=== PATIENT | female | born 1965 | race Caucasian/White ===

== ENCOUNTER → 2016-07-30 | Outpatient (CLI) | payer BC ==
[2016-07-30 19:00] LABS: ALT 52 U/L (9-52); AST 36 U/L (14-36); Alkaline Phosphatase 84 U/L (38-126); Blood Urea Nitrogen 19 mg/dL (7-17); Non-African American GFR(MDRD) >60 (>60 ml/min/1.73 sqM)
== END | disposition home or self-care (01) ==
LOC: MMGSC 15:38
PROVIDERS: ATTEND Pain Medicine Pain Medicine
DX: K75.89 Other specified inflammatory liver diseases (principal)
CPT/HCPCS: 36415; 82565; 84075; 84450; 84460; 84520

== ENCOUNTER → 2017-02-25 | Outpatient (CLI) | payer BC ==
[2017-02-25 19:10] LABS: Basophils # (A) 0.1 k/uL (0-0.2); Basophils % (A) 1 %; CH 31.2; Eosinophils # (A) 0.1 k/uL (0-0.7); Eosinophils % (A) 2 %; HCT 42.3 % (34.0-46.0); HDW 2.35; HGB 14.5 gm/dL (11.4-16.0); Luc # (Auto) 0.17; Luc % (Auto) 3; Lymphocytes % (A) 28 %; MCH 31.5 pg (25.0-35.0); MCHC 34.2 g/dL (31.0-37.0); Mean Platelet Volume 8.2; Monocytes # (A) 0.4 k/uL (0-1.0); Monocytes % (A) 6 %; Neutrophils # (A) 4.2 k/uL (1.3-7.7); Neutrophils % (A) 61 %; RDW 12.3 % (11.5-15.5); WBC 6.9 k/uL (3.8-10.6); WBC (Perox) 6.76
[2017-02-25 19:24] LABS: ALT 48 U/L (9-52); AST 34 U/L (14-36); Alkaline Phosphatase 92 U/L (38-126); Anion Gap 8 mmol/L; Blood Urea Nitrogen 16 mg/dL (7-17); Calcium 9.7 mg/dL (8.4-10.2); Carbon Dioxide 30 mmol/L (22-30); Chloride 97 mmol/L (98-107); Cholesterol 229 mg/dL (<200); Glucose 94 mg/dL (74-99); HDL Cholesterol 62 mg/dL (40-60); Non-African American GFR(MDRD) >60 (>60 ml/min/1.73 sqM); Potassium 5.1 mmol/L (3.5-5.1); Sodium 135 mmol/L (137-145); Total Bilirubin 0.3 mg/dL (0.2-1.3); Total Protein 6.8 g/dL (6.3-8.2)
== END ==
LOC: MMGSC 15:23
PROVIDERS: ATTEND Family Medicine
DX: Z00.00 Encounter for general adult medical examination without abnormal findings (principal)
CPT/HCPCS: 36415; 80053; 80061; 84439; 84443; 85025

== ENCOUNTER → 2022-03-12 | Outpatient (CLI) | payer BC ==
--- NOTE | 2022-03-13 09:01 | MM ---
Reason for Exam: Screening (asymptomatic). Patient History: Menarche at age 12. First Full-Term at age 28. Postmenopausal. Risk Values: Radha 5 year model risk: 1.4%. NCI Lifetime model risk: 8.9%. Tissue Density: There are scattered fibroglandular densities. Findings: Analyzed By CAD. There is a breast in the left mass upper outer quadrant approximately 4 cm from the nipple measuring 13 mm. Overall Assessment: Incomplete: need additional imaging evaluation, BI-RAD 0 Management: Diagnostic Breast Ultrasound of the left breast. A clinical breast exam by your physician is recommended on an annual basis and results should be correlated with mammographic findings. [facility] will attempt to contact patient to return for supplemental views and ultrasound if indicated. Electronically signed and approved by: Raphael Best DO
== END | disposition home or self-care (01) ==
LOC: RADMAMWWP 15:38
PROVIDERS: ATTEND Obstetrics & Gynecology Obstetrics
DX: Z12.31 Encounter for screening mammogram for malignant neoplasm of breast (principal)
CPT/HCPCS: 77063; 77067

== ENCOUNTER → 2022-03-20 | Outpatient (CLI) | payer BC ==
--- NOTE | 2022-03-20 17:11 | USB ---
Reason for Exam: Additional evaluation requested from abnormal screening. Patient History: Menarche at age 12. First Full-Term at age 28. Postmenopausal. Risk Values: Radha 5 year model risk: 1.4%. NCI Lifetime model risk: 8.9%. Technique: Method: Targeted. Prior Study Comparison: 03/12/2022 Bilateral MG 3D screening mammo w/cad, [facility]. Findings: The upper outer quadrant of the left breast, the axilla of the left breast and the retroareolar of the left breast were scanned. There is a 1.3 x 0.7 x 1.6 cm simple appearing cyst which is anechoic with smooth siddiqi good through transmission and posterior wall enhancement.. This correlates with the mammographic findings. Overall Assessment: Benign, BI-RAD 2 Management: Screening Mammogram of both breasts in 1 year. A clinical breast exam by your physician is recommended on an annual basis and results should be correlated with mammographic findings. Electronically signed and approved by: Shubham Silveira D.O. Radiologis
== END | disposition home or self-care (01) ==
LOC: RADUSWWP 13:23
PROVIDERS: ATTEND Obstetrics & Gynecology Obstetrics
DX: R92.8 Other abnormal and inconclusive findings on diagnostic imaging of breast (principal)

== ENCOUNTER → 2023-01-14 | Outpatient (CLI) | payer BC ==
[2023-01-14 17:29] LABS: INR <0.93 sec (0.93-1.11); Prothrombin Time 10.2 sec (9.9-11.9)
[2023-01-14 17:30] LABS: Blood Urea Nitrogen 10.4 mg/dL (9.0-27.0); Calcium 9.9 mg/dL (8.7-10.3); Carbon Dioxide 29.3 mmol/L (21.6-31.8); Chloride 102 mmol/L (96-109); Glucose 120 mg/dL (70-110); Potassium 4.6 mmol/L (3.5-5.5); Sodium 140 mmol/L (135-145)
[2023-01-14 18:00] LABS: Basophils # (A) 0.03 X 10*3/uL (0.00-0.10); Basophils % (A) 0.4 %; Eosinophils # (A) 0.15 X 10*3/uL (0.04-0.35); Eosinophils % (A) 2.2 %; HCT 38.5 % (37.2-46.3); HGB 13.2 d/dL (12.0-15.0); Lymphocytes # (A) 1.98 X 10*3/uL (0.90-5.00); Lymphocytes % (A) 28.9 %; MCH 30.6 pg (27.0-32.0); MCHC 34.3 d/dL (32.0-37.0); MCV 89.1 FL (80.0-97.0); Mean Platelet Volume 12.5 FL (9.5-12.2); Monocytes # (A) 0.54 X 10*3/uL (0.20-1.00); Monocytes % (A) 7.9 %; NRBC Per 100 WBC 0 X 10*3/uL (0.00-0.01); Neutrophils # (A) 4.14 X 10*3/uL (1.80-7.70); Neutrophils % (A) 60.5 %; Platelet Count 259 X 10*3/uL (140-440); RBC 4.32 X 10*6/uL (4.10-5.20); RDW 11.7 % (11.5-14.5); WBC 6.85 X 10*3/uL (4.50-10.00)
== END | disposition home or self-care (01) ==
LOC: LABWHC1 13:41
PROVIDERS: ATTEND Orthopaedic Surgery
DX: Z01.812 Encounter for preprocedural laboratory examination (principal); Z22.322 Carrier or suspected carrier of Methicillin resistant Staphylococcus aureus; M19.012 Primary osteoarthritis, left shoulder; R94.31 Abnormal electrocardiogram [ECG] [EKG]
CPT/HCPCS: 36415; 80048; 85025; 85610; 87070; 93005

== ENCOUNTER 2023-01-27 05:47 | Day surgery (SDC) | payer BC ==
--- NOTE | 2023-01-26 08:20 | P.HPOR ---
History of Present Illness H&P Date: 01/26/23 Chief Complaint: Left shoulder pain The patient is a 57-year-old female who presents with progressive left shoulder pain for the past 5 years worsening over the past 3 months. She is having pain with any attempted overhead use and at night. She's tried medications along wi th home exercises for greater than 6 months without significant relief. She notes daily pain that limits her. 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 no blood tx hx Smoking Status: Never smoker - Past Family History Mother Family Medical History: Cancer Additional Family Medical History / Comment(s): lung, bone Sister(s) Family Medical History: Deep Vein Thrombosis (DVT) Medications and Allergies Home Medications Medication Instructions Recorded Confirmed Type ARIPiprazole [Abilify] 10 mg PO HS 01/19/23 01/19/23 History Atorvastatin Calcium 20 mg PO HS 01/19/23 01/19/23 History DULoxetine HCL [Cymbalta] 60 mg PO HS 01/19/23 01/19/23 History busPIRone HCL [Buspirone HCl] 20 mg PO HS 01/19/23 01/19/23 History clonazePAM [Clonazepam] 1.5 mg PO HS 01/19/23 01/19/23 History oxyCODONE HCL [oxyCODONE HCL ER] 20 mg PO TID 01/19/23 01/19/23 History Allergies Allergy/AdvReac Type Severity Reaction Status Date / Time fentanyl AdvReac Unknown Verified 01/19/23 14:58 Penicillins AdvReac Unknown Verified 01/19/23 14:58 Physical Examination - Shoulder left Appearance: effusion Effusion grade: grade 1 Tenderness with palpation: anterior, bicipital groove Pain: with abduction, with forward flexion ROM: forward flexion: 80 degrees ROM: internal rotation: lower lumbar ROM: external rotation: 40 degrees Crepitus with motion: Yes Strength: abduction: 5/5 Strength: forward flexion: 5/5 Strength: external rotation: 5/5 Tests: internal impingement tests: positive, external impingment tests: positive Results The patient is a well-developed well-nourished female approximately 5 foot 7, 204 pounds of endomorphic habitus. HEENT exam is nonfocal, neck is supple. She's tender about the left shoulder anterior subacromial space. Passively I'm able to forward elevate her to 115. Impingement test, Neer test, and speed test are positive. Her distal neurovascular appears intact in the left upper extremity. - Diagnostic results Shoulder x-ray: image reviewed (3 views of the left shoulder obtained the office show severe glenohumeral joint space narrowing with [id number] changes and subchondral sclerosis. The humeral head to acromion distance appears to be maintained.) Assessment and Plan Assessment: Left severe glenohumeral joint osteoarthrosis Plan: I talked to the patient length regarding her condition along with treatment options. At this point she is quite limited because of pain related to her left shoulder osteoarthrosis despite conservative measures. After thorough discussion she opted to proceed with surgery. We'll proceed with left total shoulder arthroplasty. Risks and benefits were discussed at length limbs turns.
[~2023-01-27 05:47] MED LIST: ACETAMINOPHEN TAB 500 MG TAB PO PRN; MELOXICAM 7.5 MG TAB PO PRN; TRANEXAMIC 1,000 MG/100ML-NACL 1,000 MG in SALINE 1 100ML.BAG IVPB PRN
[2023-01-27] MEDS ORDERED: HYDROmorphone 0.5 MG/0.5 ML SYRINGE IVP PRN (06:02)
[2023-01-27] MEDS ORDERED: ONDANSETRON 4 MG/2 ML VIAL IVP ONE (06:02)
[2023-01-27] MEDS ORDERED: DEXAMETHASONE SOD PHOSPHATE 4 MG/ML 1 ML VIAL IV ONE (06:02)
[2023-01-27] MEDS: LACTATED RINGERS 1,000 ML IV SCH ×2 (06:32→11:45)
[2023-01-27] MEDS ORDERED: MIDAZOLAM 2 MG/2 ML VIAL IVP ONE (07:05)
--- NOTE | 2023-01-27 07:25 | P.ANPRN ---
Procedure Note - Anesthesia - Nerve Block Performed Left Interscalene Single Time Out Performed: Yes ([id number]) Date of Procedure: 01/27/23 Procedure Start Time: :05 Procedure Stop Time: 07:09 Location of Patient: PreOp Indication: Acute Post-Operative Pain, Requested by Surgeon Specifically requested for management of pain by : Kole Bonilla Sedation Type: Sedate with meaningful contact maintained Preparation: Sterile Prep Position: Supine Catheter: None Needle Types: Pajunk Needle Gauge: 21 Ultrasound used to visualize needle placement: Yes Ultrasound used to observe medication spread: Yes Injectate: 0.5% Ropivacaine (see comment for volume) (30cc) Blood Aspirated: No Pain Paresthesia on Injection Noted: No Resistance on Injection: Normal Image Stored and Saved: Yes Events: Uneventful and Well Tolerated
[2023-01-27] MEDS ORDERED: PHENYLEPHRINE-0.9% NACL SYG 1,000 MCG/10 ML SYRINGE ONE (07:27)
[2023-01-27] MEDS ORDERED: ROPIVACAINE 5 MG/ML 30 ML VIAL ONE (07:27)
[2023-01-27] MEDS ORDERED: PROPOFOL 10 MG/ML 20 ML VIAL IV ONE (07:27)
[2023-01-27] MEDS ORDERED: TRANEXAMIC 1,000 MG/100ML-NACL PREMIX BAG ONE (07:27)
[2023-01-27] MEDS ORDERED: SUCCINYLCHOLINE CHLORIDE 200 MG/10 ML VIAL IV ONE (07:27)
[2023-01-27] MEDS ORDERED: ePHEDrine 50 MG/ML 1 ML VIAL ONE (07:27)
[2023-01-27] MEDS ORDERED: LIDOCAINE 2% INJ 20 MG/ML (2 ML VIAL) ONE (07:27)
[2023-01-27] MEDS ORDERED: KETOROLAC 15 MG/ML 1 ML VIAL ONE (07:27)
[2023-01-27] MEDS ORDERED: ceFAZolin 1,000 MG in SODIUM CHLORIDE 0.9% 1,000 ML IRRIGATION ONE (07:34)
[2023-01-27] MEDS ORDERED: SENNOSIDES-DOCUSATE SODIUM 1 EACH TAB PO PRN (09:25)
[2023-01-27] MEDS ORDERED: hydrOXYzine pamoate 25 MG CAP PO PRN (09:25)
[2023-01-27] MEDS ORDERED: LACTATED RINGERS 1,000 ML IV ONE (09:26)
--- NOTE | 2023-01-27 09:45 | P.OP ---
Date of Procedure: 01/27/23 Preoperative Diagnosis: Severe left glenohumeral joint osteoarthrosis Postoperative Diagnosis: Same Procedure(s) Performed: Left total shoulder arthroplasty Implants: [employer] size 10 press-fit humeral stem, size 10 press-fit humeral body, 40 mm cemented central pegged glenoid, 40 x 18 eccentric humeral head. Anesthesia: carlo FONTANA Surgeon: Kole Bonilla Product Responsibility Liaison #1: Raghavendra Hoover Estimated Blood Loss (ml): 200 Pathology: other (Humeral head) Condition: stable Disposition: PACU Indications for Procedure: The patient's a 57-year-old female who presents with progressive left shoulder pain secondary to severe osteoarthrosis despite conservative measures. A discussion of the risks and benefits of operative intervention versus continued conservative measures was made with the patient. She opted to proceed with barajas rgery. Operative risks to include infection, neurovascular injury, development of blood clots, fracture, possible component loosening, possible instability, possible if for subsequent procedures was discussed. Informed consent was obtained. Operative Findings: As below Description of Procedure: The patient was brought to the operating room, and after induction of general anesthesia was placed in the beachchair position. The bony prominences were appropriately padded. The left upper extremity was prepped and draped in normal fashion. A deltopectoral incision was then made lateral to the coracoid process extending approximately 12 cm. The skin was incised sharply. Subcutaneous tissues were divided bluntly. Electrocautery was used for hemostasis. The deltopectoral interval was identified and the cephalic vein gently retracted laterally with the deltoid. Subdeltoid adhesions were bluntly dissected. A self-retaining retractor was placed. The clavipectoral fascia was opened and the conjoined tendon gently retracted medially. The upper one third of the pectoralis major was released to help facilitate exposure. The biceps was identified and the sheath was opened. The rotator interval was opened. The biceps was tenotomized and allowed to retract distally. The subscapularis was then peeled and tagged with #2 Ethibond suture. The humeral head was then exposed releasing the capsule off the humeral neck. The shoulder was gently dislocated. A starting hole was made in the head in line with the humeral shaft. The shaft was reamed by hand up to 10 mm. There is good distal chatter. The cutting guide was placed planning on a cut flush with the rotator cuff insertion and 30 of retroversion. The cutting block was pinned in place. The humeral head cut was then made. This measured most appropriately at 40 mm. Residual inferior osteophytes were carefully removed flush with the [place] cortical bone. A posterior glenoid retractor was placed. The glenoid was then exposed releasing the labrum from the 6-12 o'clock position. Residual labral tissue was removed. The glenoid sized most appropriate 40 mm. A guidewire was then inserted planning on the appropriate version. The glenoid was reamed down to a bleeding bony surface. The central pedicle was drilled. The alignment guide was placed in the peripheral peg holes drilled. The trial size 40 mm glenoid was placed and was fully seated. There was good anterior to posterior and inferior to superior fit. The trial component was removed. Pulsatile lavage was utilized. The bony surface was dried. The peripheral peg holes were then pressurized with cement utilizing a syringe. Excess cement was removed. A central peg glenoid was then placed and was fully seated. This was gently impacted. This was held in place until the cement had sufficiently hardened. Attention was then paid again towards preparing the proximal humerus. The appr opriate broach was placed in 30 of retroversion and was fully seated. An eccentric 40 x 18 mm humeral head was placed. The shoulder was gently reduced. It was taken through a range of motion. It was felt to be stable in flexion and extension with internal and external rotation. I felt there was adequate judaism of soft tissue tension. The shoulder was gently dislocated. The trial components were then removed. A #2 Ethibond was placed laterally for reattachment of the lesser tuberosity. The humeral stem was inserted in 30 of retroversion and was fully seated. There was good rotational stability. The eccentric 40 x 18 mm humeral head was gently impacted. The shoulder was then gently reduced and taken through range of motion and was felt to be stable. Pulsatile lavage was utilized. The subscapularis was reattached utilizing #2 Ethibond suture. The rotator interval was closed with #2 Ethibond suture. She had minimal drainage at this point therefore a deep drain was not placed. The deltopectoral interval was closed with interrupted 2-0 Vicryl sutures. The subcu tissues were reapproximated with interrupted 2-0 Vicryl sutures. The skin was reapproximated with 3-0 subcuticular Prolene suture. Steri-Strips were applied. A sterile dressing was applied in addition to a sling. The patient was then awoken from general anesthesia and transferred to recovery room in good condition. Blood loss was estimated at 200 mL. No complications were incurred. Sponge and needle counts were correct at the end the case. Raghavendra WORLEY assisted during the major components of the case to include positioning, exposure, resection, implantation, and closure.
--- NOTE | 2023-01-27 10:41 | XR ---
EXAMINATION TYPE: XR shoulder limited LT DATE OF EXAM: 01/27/2023 10:26 AM INDICATION: Patient age:Female; 57 years old; Reason for study: s/p left total shoulder arthroplasty; COMPARISON: None TECHNIQUE: The left shoulder was examined in frontal view FINDINGS: Left total shoulder arthroplasty changes with hardware intact. No evidence of fracture. Ali gnment is appropriate. Subcutaneous lucencies compatible with recent surgery. IMPRESSION: Post surgical changes with hardware in appropriate position. No acute fracture.
[2023-01-27] MEDS: HYDROmorphone 0.5 MG/0.5 ML SYRINGE IVP PRN ×2 (11:49→23:21)
--- NOTE | 2023-01-27 14:59 | P.CONS ---
History of Present Illness - Reason for Consult Consult date: 01/27/23 - History of Present Illness Patient is a 57-year-old female with a past medical history of anxiety depression and PTSD and ADHD who was admitted for left total shoulder arthroplasty. Medicine has been consulted for medical management. Patient currently denying any acute complaints. She states that the anesthesia started to wear off on her left arm and she states that it feels strange. Review of systems: 10 ROS reviewed and are negative except as noted in HPI Physical exam General: [Alert and oriented, well nourished, no acute distress]. Eye: [PERRL, EOMI, normal conjunctiva]. HENT: [Normocephalic, clear tympanic membranes, normal hearing, moist oral mucosa, no scleral icterus, no sinus tenderness]. Neck: [Supple, non-tender, no carotid bruits, no JVD, no lymphadenopathy]. Lungs: [Clear to auscultation and percussion, non-labored respiration]. Heart: [Normal rate, regular rhythm, no murmur, gallop or edema]. Abdomen: [Soft, non-tender, non-distended, normal bowel sounds, no masses]. Musculoskeletal: [Restricted range of motion of the left upper extremity, left upper extremity in sling]. Skin: [Skin is warm, dry and pink, no rashes or lesions]. Neurologic: [Awake, alert, and oriented X3, CN II-XII intact]. Psychiatric: [Cooperative, appropriate mood and affect]. Assessment and plan Anxiety and depression ADHD PTSD Hyperlipidemia Status post left shoulder arthroplasty Resume Abilify 10 mg by mouth at bedtime, atorvastatin 20 mg by mouth at bedtime, BuSpar 20 mg by mouth at bedtime, clonazepam 1.5 mg at bedtime, Cymbalta 60 mg by mouth at bedtime. Patient instructed that she needs to bring her home dose of Adderall Pain control as per primary team. CODE STATUS:full code DVT prophylaxis: Orthopedic surgery as started the patient on aspirin 325 mg by mouth daily Anticipated discharge place: home Thank you for the consult. 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 no blood tx hx Past Psychological History: ADD/ADHD, Anxiety, PTSD Smoking Status: Never smoker Past Alcohol Use History: None Reported Additional Past Alcohol Use History / Comment(s): quit 28 yrs ago, Past Drug Use History: Marijuana - Past Family History Mother Family Medical History: Cancer Additional Family Medical History / Comment(s): lung, bone Sister(s) Family Medical History: Deep Vein Thrombosis (DVT) Medications and Allergies Home Medications Medication Instructions Recorded Confirmed Type ARIPiprazole [Abilify] 10 mg PO HS 01/19/23 01/27/23 History Atorvastatin Calcium 20 mg PO HS 01/19/23 01/27/23 History DULoxetine HCL [Cymbalta] 60 mg PO HS 01/19/23 01/27/23 History busPIRone HCL [Buspirone HCl] 20 mg PO HS 01/19/23 01/27/23 History clonazePAM [Clonazepam] 1.5 mg PO HS 01/19/23 01/27/23 History oxyCODONE HCL [oxyCODONE HCL ER] 20 mg PO TID 01/19/23 01/27/23 History Dextroamphetamine/Amphetamine 20 mg PO BID 01/27/23 01/27/23 History [Adderall] Multivitamins, Thera [Multivitamin 1 tab PO DAILY 01/27/23 01/27/23 History (formulary)] Vits A,C,E/Lutein/Minerals 1 each PO DAILY 01/27/23 01/27/23 History [Ocuvite with Lutein Tablet] Allergies Allergy/AdvReac Type Severity Reaction Status Date / Time fentanyl AdvReac Unknown Verified 01/27/23 06:25 Penicillins AdvReac Unknown Verified 01/27/23 06:25 pregabalin [From Lyrica] AdvReac Swelling Verified 01/27/23 06:26 Physical Exam Osteopathic Statement: *. No significant issues noted on an osteopathic structural exam other than those noted in the History and Physical/Consult. Vitals: Vital Signs Temp Pulse Pulse Resp BP Pulse Ox 01/27/23 11:45 86 124/84 92 L 01/27/23 11:30 69 114/79 95 01/27/23 11:15 72 119/80 96 01/27/23 11:02 98.7 F 76 18 117/81 97 01/27/23 10:15 84 16 146/76 93 L 01/27/23 10:00 70 16 135/73 100 01/27/23 09:45 96.8 F L 96 12 149/86 99 01/27/23 07:14 67 16 112/60 99 01/27/23 06:23 97.1 F L 71 16 138/75 96 Intake and Output 01/26/23 01/27/23 01/27/23 22:59 06:59 14:59 Intake Total 300 951 Output Total 200 Balance 300 751 Intake: IV 300 951 Output: Estimated Blood Loss 200 Other: # Voids 1 Weight 92.4 kg 92.4 kg
[2023-01-27] MEDS: HYDROmorphone 1 MG/ML 1 ML SYRINGE IVP PRN (16:19)
[2023-01-27] MEDS: oxyCODONE ER 20 MG TAB.ER.12H PO SCH ×2 (17:37→22:04)
[2023-01-27] MEDS ORDERED: DULoxetine HCL 60 MG CAPSULE.DR PO SCH (21:00)
[2023-01-27] MEDS ORDERED: ATORVASTATIN 20 MG TAB PO SCH (21:00)
[2023-01-27] MEDS ORDERED: MELATONIN 5 MG TABLET PO SCH (21:00)
[2023-01-27] MEDS ORDERED: busPIRone HCl 10 MG TAB PO SCH (21:00)
[2023-01-27] MEDS ORDERED: ARIPiprazole 10 MG TAB PO SCH (21:00)
[2023-01-27] MEDS ORDERED: clonazePAM 1 MG TAB PO SCH (21:00)
[2023-01-27] MEDS: NON FORMULARY DRUG (Dextroamphetamine/Amphetamine [Adderall] 20 MG Tablet) PO SCH (21:52)
[2023-01-28] MEDS: HYDROmorphone 0.5 MG/0.5 ML SYRINGE IVP PRN (02:24)
[2023-01-28 04:51] LABS: Glucose,Whole Blood 125 mg/dL (70-110)
[2023-01-28] MEDS: HYDROmorphone 1 MG/ML 1 ML SYRINGE IVP PRN (05:15)
[2023-01-28 07:32] VITALS: BP 138/92; PULSE 70; RESP 17; TEMP 98.4
[2023-01-28] MEDS: LACTATED RINGERS 1,000 ML IV SCH ×2 (07:40→08:53)
[2023-01-28] MEDS: oxyCODONE ER 20 MG TAB.ER.12H PO SCH (08:51)
--- NOTE | 2023-01-28 08:51 | P.PN ---
Subjective Progress Note Date: 01/28/23 Principal diagnosis: Severe left glenohumeral joint osteoarthrosis Patient was seen at bedside this morning lying semirecumbent position with sling to left upper extremity. Dressing is present over the left shoulder. Patient says she has been up walking around her room since surgery.. Patient says she has urinated several times and has had a bowel movement since surgery yesterday. Patient says she is leaning toward doing home today. Patient says she will have help at home with both of her daughters. Patient says her primary care provider did prescribe her pain medication. Patient denies chest pain, fever, shortness breath, nausea, vomiting, change in vision, loss of bowel/bladder control Objective - Vital Signs Vital signs: Vital Signs Temp 98.4 F 01/28/23 06:45 Pulse 70 01/28/23 06:45 Resp 17 01/28/23 06:45 BP 138/92 01/28/23 06:45 Pulse Ox 97 01/28/23 06:45 FiO2 Intake & Output 01/27/23 01/28/23 01/28/23 18:59 06:59 18:59 Intake Total 951 Output Total 200 Balance 751 Weight 92.4 kg Intake: IV 951 Output: Estimated Blood Loss 200 Other: # Voids 1 1 - Exam Left shoulder: Incision is clean, dry, and intact. The bulky dressing is in good condition. There is minimal soft tissue swelling and ecchymosis surrounding the medial and lateral aspects of the incision. Patient has full range of motion in flexion and extension of left elbow and left wrist. Patient is able to wiggle digits in left hand. Calf is soft, no tenderness with palpation. Plantar flexion, dorsiflexion, EHL, FHL are intact. Sensory exam to light touch throughout the extremity is intact, dorsal pedis pulses 2+. - Labs Labs: Abnormal Lab Results - Last 24 Hours (Table) 01/28/23 Range/Units 04:49 POC Glucose (mg/dL) 125 H (70-110) mg/dL Assessment and Plan Assessment: 1. Severe left glenohumeral joint osteoarthrosis Postoperative day 1 status post left total shoulder arthroplasty Plan: 1. Severe left glenohumeral joint osteoarthrosis - left total shoulder arthroplasty performed yesterday, 01/27/2023. Patient stable at bedside this morning the sling to left upper extremity. Plan for discharge home today. Going home with Hulett 5 mg every 8 hours and Vistaril. 2. Appreciate medical management 3. Pain management - Hulett; Vistaril 4. DVT prophylaxis - aspirin 325 mg daily 30 days 5. GI prophylaxis - senna 6. PT/OT - nonweightbearing left upper extremity. 7. Encourage incentive spirometer use 8. Discharge planning - discharge home today Time with Patient: Less than 30
[2023-01-28] MEDS: NON FORMULARY DRUG (Dextroamphetamine/Amphetamine [Adderall] 20 MG Tablet) PO SCH (08:54)
[2023-01-28] MEDS ORDERED: MULTIVITAMINS, THERA 1 EACH TAB PO SCH (09:00)
[2023-01-28] MEDS ORDERED: ASPIRIN 325 MG TAB PO SCH (09:00)
--- NOTE | 2023-01-28 10:11 | P.DS ---
Providers Date of admission: 01/27/2023 Expected date of discharge: 01/28/23 Attending physician: Kole Bonilla Consults: 01/27/23 09:25 Consult Physician Routine Consulting Provider: Enrrique Long Consult Reason/Comments: medical management s/p left total shoulder arthroplasty Do you want consulting provider notified?: Yes Primary care physician: [facility] Course: Date of admission: 01/27/2023 Date of discharge: 01/28/2023 Admission diagnosis: Severe left glenohumeral joint osteoarthrosis Discharge diagnosis: Same Attending physician: Dr. Bonilla Surgical procedures: Left total shoulder arthroplasty Brief history: Patient is a 57-year-old female with a history of progressive primary severe left glenohumeral joint osteoarthrosis. At this point patient has failed conservative treatment measures and has opted to proceed with a elective total shoulder arthroplasty. Hospital course: Details of patient's surgery can be found in operative report. Patient tolerated the procedure well and was subsequently transported to orthopedic floor. Patient's orthopeidc and medical care was provided daily. Patient had daily laboratory tests performed for evaluation of overall blood counts. Patient had daily physical therapy to include strengthening range of motion as well as education with walker ambulation. Patient was treated with aspirin for their postoperative DVT prophylaxis during their inpatient stay. Patient was noted to have a relatively uneventful postoperative course. Patient reported satisfactory pain control with oral pain medications by postoperative day 1. Patient showed satisfactory progress with physical therapy. Patient moved steadily through the program and had no difficulty meeting the goals by postoperative day 1. Given patient's otherwise satisfactory course and having met physical therapy goals, plan is to discharge patient home on postoperative day 1. Discharge condition/disposition: Patient will be discharged home in stable condition. Discharge medications: Instructions are given on resumption of patient's normal daily medications per primary care recommendation, in addition patient will be p rescribed [place] 5 mg/325 mg; Vistaril aspirin 325 mg daily x 28 days Discharge instructions: 1. Wound care and infection precautions, keep incision dry and covered while showering, no lotions, creams, moisturizers. No soaking, tubs, pools, hottubs. Do not scrub over the incision. 2. Nonweightbearing left upper extremity. 3. Ice when necessary. Do not exceed 20 minutes per hour with ice pack. 4. Utilize sling to left upper extremity until follow-up appointment in office 5. Pain meds and anticoagulants per prescription. 6. Pain medication has potential to cause constipation. Increase oral fluid and fiber intake. Contact primary care provider if you have not had a bowel movement within 48 hours after discharge 7. No anti-inflammatory medication until discussed at first post operative visit, this including Motrin, Aleve, Mobic, Diclofenac. 8. Follow up in office at 2 weeks postop with Regan Eugene PA-C / Raghavendra Hoover PA-C 9. Follow up with your primary care doctor 7-10 days after discharge. 10. Contact [facility] with any questions, . Keep incision clean, dry, intact. While showering, cover incision with Saran wrap. Keep the Steri-Strips on until follow-up appointment in office in 2 weeks Assessment: Severe left glenohumeral joint osteoarthrosis Procedures: Left total shoulder arthroplasty Patient Condition at Discharge: Good Plan - Discharge Summary Discharge Rx Participant: No New Discharge Prescriptions: New Aspirin 325 mg PO DAILY #28 tab hydrOXYzine pamoate [Vistaril] 25 mg PO TID #21 cap HYDROcodone/APAP 5-325MG [[place] 5-325] 1 tab PO Q8HR PRN #21 tab PRN Reason: Pain No Action ARIPiprazole [Abilify] 10 mg PO HS oxyCODONE HCL [oxyCODONE HCL ER] 20 mg PO TID Vits A,C,E/Lutein/Minerals [Ocuvite with Lutein Tablet] 1 each PO DAILY clonazePAM [Clonazepam] 1.5 mg PO HS busPIRone HCL [Buspirone HCl] 20 mg PO HS DULoxetine HCL [Cymbalta] 60 mg PO HS Atorvastatin Calcium 20 mg PO HS Multivitamins, Thera [Multivitamin (formulary)] 1 tab PO DAILY Dextroamphetamine/Amphetamine [Adderall] 20 mg PO BID Discharge Medication List ARIPiprazole [Abilify] 10 mg PO HS 01/19/23 [History] Atorvastatin Calcium 20 mg PO HS 01/19/23 [History] DULoxetine HCL [Cymbalta] 60 mg PO HS 01/19/23 [History] busPIRone HCL [Buspirone HCl] 20 mg PO HS 01/19/23 [History] clonazePAM [Clonazepam] 1.5 mg PO HS 01/19/23 [History] oxyCODONE HCL [oxyCODONE HCL ER] 20 mg PO TID 01/19/23 [History] Dextroamphetamine/Amphetamine [Adderall] 20 mg PO BID 01/27/23 [History] Multivitamins, Thera [Multivitamin (formulary)] 1 tab PO DAILY 01/27/23 [History] Vits A,C,E/Lutein/Minerals [Ocuvite with Lutein Tablet] 1 each PO DAILY 01/27/23 [History] Aspirin 325 mg PO DAILY #28 tab 01/28/23 [Rx] HYDROcodone/APAP 5-325MG [[place] 5-325] 1 tab PO Q8HR PRN #21 tab 01/28/23 [Rx] hydrOXYzine pamoate [Vistaril] 25 mg PO TID #21 cap 01/28/23 [Rx] Follow up Appointment(s)/Referral(s): Raghavendra Hoover PAC [PHYSICIAN PH[employer]ICIANS ASSISTANT] - 02/20/23 2:00 pm Nancy Huber MD [Primary Care Provider] - 02/11/23 2:45 pm Patient Instructions/Handouts: Shoulder Arthroplasty (DC) Activity/Diet/Wound Care/Special Instructions: Discharge instructions: 1. Wound care and infection precautions, keep incision dry and covered while showering, no lotions, creams, moisturizers. No soaking, tubs, pools, hottubs. Do not scrub over the incision. 2. Nonweightbearing left upper extremity. 3. Ice when necessary. Do not exceed 20 minutes per hour with ice pack. 4. Utilize sling to left upper extremity until follow-up appointment in office 5. Pain meds and anticoagulants per prescription. 6. Pain medication has potential to cause constipation. Increase oral fluid and fiber intake. Contact primary care provider if you have not had a bowel movement within 48 hours after discharge 7. No anti-inflammatory medication until discussed at first post operative visit, this including Motrin, Aleve, Mobic, Diclofenac. 8. Follow up in office at 2 weeks postop with Regan Eugene PA-C / Raghavendra Hoover PA-C 9. Follow up with your primary care doctor 7-10 days after discharge. 10. Contact [facility] with any questions, . Keep incision clean, dry, intact. While showering, cover incision with Saran wrap. Keep the Steri-Strips on until follow-up appointment in office in 2 weeks Discharge Disposition: HOME SELF-CARE
--- NOTE | 2023-01-28 14:18 | P.PN ---
Subjective Progress Note Date: 01/28/23 Hospital course Patient is a 57-year-old female with a past medical history of anxiety depressi on and PTSD and ADHD who was admitted for left total shoulder arthroplasty. Medicine has been consulted for medical management. Patient currently denying any acute complaints. She states that the anesthesia started to wear off on her left arm and she states that it feels strange. Subjective Patient says that she still has pain however she believes that she'll do better at home Physical exam General: [Alert and oriented, well nourished, no acute distress]. Eye: [PERRL, EOMI, normal conjunctiva]. HENT: [Normocephalic, clear tympanic membranes, normal hearing, moist oral mucosa, no scleral icterus, no sinus tenderness]. Neck: [Supple, non-tender, no carotid bruits, no JVD, no lymphadenopathy]. Lungs: [Clear to auscultation and percussion, non-labored respiration]. Heart: [Normal rate, regular rhythm, no murmur, gallop or edema]. Abdomen: [Soft, non-tender, non-distended, normal bowel sounds, no masses]. Musculoskeletal: [Restricted range of motion of the left upper extremity, left upper extremity in sling]. Skin: [Skin is warm, dry and pink, no rashes or lesions]. Neurologic: [Awake, alert, and oriented X3, CN II-XII intact]. Psychiatric: [Cooperative, appropriate mood and affect]. Assessment and Plan: Anxiety and depression ADHD PTSD Hyperlipidemia Status post left shoulder arthroplasty Resume Abilify 10 mg by mouth at bedtime, atorvastatin 20 mg by mouth at bedtime, BuSpar 20 mg by mouth at bedtime, clonazepam 1.5 mg at bedtime, Cymbalta 60 mg by mouth at bedtime. Patient instructed that she needs to bring her home dose of Adderall Pain control as per primary team. Patient stable for discharge from medical standpoint. Objective - Vital Signs Vital signs: Vital Signs Temp 98.4 F 01/28/23 06:45 Pulse 70 01/28/23 06:45 Resp 17 01/28/23 06:45 BP 138/92 01/28/23 06:45 Pulse Ox 97 01/28/23 06:45 FiO2 Intake & Output 01/27/23 01/28/2301/28/23 18:59 06:59 18:59 Intake Total 951 Output Total 200 Balance 751 Weight 92.4 kg Intake: IV 951 Output: Estimated Blood Loss 200 Other: # Voids 1 1 - Labs Labs: Abnormal Lab Results - Last 24 Hours (Table) 01/28/23 Range/Units 04:49 POC Glucose (mg/dL) 125 H (70-110) mg/dL
== END 2023-01-28 13:48 | disposition home or self-care (01) ==
LOC: OR 05:47 → 4SSUR 10:34 → OR 01-28 13:48
PROVIDERS: ATTEND Orthopaedic Surgery
DX: M19.012 Primary osteoarthritis, left shoulder (principal); G89.18 Other acute postprocedural pain; E78.5 Hyperlipidemia, unspecified; Z98.890 Other specified postprocedural states; Z80.9 Family history of malignant neoplasm, unspecified; Z79.899 Other long term (current) drug therapy; Z96.653 Presence of artificial knee joint, bilateral; Z88.5 Allergy status to narcotic agent; Z88.0 Allergy status to penicillin
CPT/HCPCS: 23472; 64415; 73020; C1713; C1776; J2250; J0330; J1100; J0690 ×2; J2405; J1170 ×4; J2795; J1885; J2704; J2001; J2371

== ENCOUNTER → 2023-02-20 | Outpatient (CLI) | payer BC ==
[2023-02-20 20:07] LABS: Basophils # (A) 0.05 X 10*3/uL (0.00-0.10); Basophils % (A) 0.7 %; Eosinophils # (A) 0.11 X 10*3/uL (0.04-0.35); Eosinophils % (A) 1.6 %; HCT 41.7 % (37.2-46.3); HGB 13.6 d/dL (12.0-15.0); Lymphocytes # (A) 2.22 X 10*3/uL (0.90-5.00); Lymphocytes % (A) 32.5 %; MCH 29.8 pg (27.0-32.0); MCHC 32.6 d/dL (32.0-37.0); MCV 91.2 FL (80.0-97.0); Mean Platelet Volume 11.8 FL (9.5-12.2); Monocytes # (A) 0.43 X 10*3/uL (0.20-1.00); Monocytes % (A) 6.3 %; NRBC Per 100 WBC 0 X 10*3/uL (0.00-0.01); Neutrophils # (A) 4.01 X 10*3/uL (1.80-7.70); Neutrophils % (A) 58.8 %; Platelet Count 317 X 10*3/uL (140-440); RBC 4.57 X 10*6/uL (4.10-5.20); RDW 11.9 % (11.5-14.5); WBC 6.83 X 10*3/uL (4.50-10.00)
[2023-02-20 20:15] LABS: ALT 18 U/L (8-44); AST 20 U/L (13-35); Albumin 4.6 d/dL (3.8-4.9); Alkaline Phosphatase 133 U/L (41-126); Blood Urea Nitrogen 11.6 mg/dL (9.0-27.0); Calcium 10.2 mg/dL (8.7-10.3); Carbon Dioxide 30.6 mmol/L (21.6-31.8); Chloride 101 mmol/L (96-109); Chol/HDL Ratio 2.82 Ratio; Globulin 2.3 d/dL (1.6-3.3); Glucose 85 mg/dL (70-110); LDL Cholesterol,Calculated 74.6 mg/dL (0.0-131.0); Potassium 5.2 mmol/L (3.5-5.5); Sodium 143 mmol/L (135-145); Total Bilirubin <0.2 mg/dL (0.3-1.2); Total Protein 6.9 d/dL (6.2-8.2)
== END | disposition home or self-care (01) ==
LOC: LABWHC1 14:45
PROVIDERS: ATTEND Family Medicine
DX: I26.09 Other pulmonary embolism with acute cor pulmonale (principal)
CPT/HCPCS: 36415; 80053; 80061; 83036; 84443; 85025

== ENCOUNTER → 2023-12-17 | Outpatient (CLI) | payer BC ==
[2023-12-17 14:42] LABS: Basophils # (A) 0.05 X 10*3/uL (0.00-0.10); Basophils % (A) 0.8 %; Eosinophils # (A) 0.09 X 10*3/uL (0.04-0.35); Eosinophils % (A) 1.4 %; HCT 42.6 % (37.2-46.3); HGB 14.4 g/dL (12.0-15.0); Lymphocytes # (A) 1.79 X 10*3/uL (0.90-5.00); Lymphocytes % (A) 28.3 %; MCH 29.9 pg (27.0-32.0); MCHC 33.8 g/dL (32.0-37.0); MCV 88.4 FL (80.0-97.0); Mean Platelet Volume 11.5 FL (9.5-12.2); Monocytes # (A) 0.42 X 10*3/uL (0.20-1.00); Monocytes % (A) 6.6 %; NRBC Per 100 WBC 0 X 10*3/uL (0.00-0.01); Neutrophils # (A) 3.95 X 10*3/uL (1.80-7.70); Neutrophils % (A) 62.6 %; Platelet Count 258 X 10*3/uL (140-440); RBC 4.82 X 10*6/uL (4.10-5.20); RDW 11.9 % (11.5-14.5); WBC 6.32 X 10*3/uL (4.50-10.00)
[2023-12-17 15:00] LABS: Blood Urea Nitrogen 13.6 mg/dL (9.0-27.0); C Reactive Protein <0.30 mg/dL (0.00-0.80); Carbon Dioxide 30.1 mmol/L (21.6-31.8); Chloride 99 mmol/L (96-109); Glucose 100 mg/dL (70-110); Potassium 4.6 mmol/L (3.5-5.5); Sodium 139 mmol/L (135-145)
[2023-12-17 15:01] LABS: ALT 22 U/L (8-44); AST 20 U/L (13-35); Albumin 4.4 g/dL (3.8-4.9); Albumin/Globulin Ratio 1.76 Ratio (1.60-3.17); Alkaline Phosphatase 113 U/L (41-126); Calcium 10.5 mg/dL (8.7-10.3); Globulin 2.5 g/dL (1.6-3.3); Total Bilirubin 0.3 mg/dL (0.3-1.2); Total Protein 6.9 g/dL (6.2-8.2)
[2023-12-17 16:04] LABS: Erythrocyte Sedimentation Rate 12 mm/Hr (0-30)
[2023-12-17 17:08] LABS: Gliadin AB IgA, Deaminated Negative (Negative); Gliadin AB IgA, Unit 2.3 U/mL
[2023-12-17 17:53] LABS: Gliadin AB IgG, Deaminated Negative (Negative); Gliadin AB IgG, Unit 0.4 U/mL
== END | disposition home or self-care (01) ==
LOC: LABWHC1 11:14
PROVIDERS: ATTEND Internal Medicine Gastroenterology
DX: K52.9 Noninfective gastroenteritis and colitis, unspecified (principal)
CPT/HCPCS: 36415; 80053; 83516; 85025; 85652; 86140

== ENCOUNTER → 2024-06-01 | Outpatient (CLI) | payer BC ==
--- NOTE | 2024-06-06 10:46 | MM ---
Reason for Exam: Screening (asymptomatic). Last mammogram was performed 1 year(s) and 2 month(s) ago. Patient History: Menarche at age 12. First Full-Term at age 28. Postmenopausal. Risk Values: Radha 5 year model risk: 1.5%. NCI Lifetime model risk: 8.5%. Prior Study Comparison: 03/12/2022 Bilateral MG 3D screening mammo w/cad, [facility]. 04/01/2023 Bilateral MG 3D screening mammo w/cad, [facility]. Tissue Density: The breasts are heterogeneously dense, which may obscure small masses. Findings: Analyzed By CAD. There is no suspicious group of microcalcifications or new suspicious mass in either breast. Overall Assessment: Benign, BI-RAD 2 Management: Screening Mammogram of both breasts in 1 year. . Patient should continue monthly self-breast exams. A clinical breast exam by your physician is recommended on an annual basis. This exam should not preclude additional follow-up of suspicious palpable abnormalities. Note on Radha scores and lifetime risk: 1. A Radha score greater than 3% is considered moderate risk. If this is the case, consider specialist referral to assess eligibility for a risk reducing agent. 2. If overall lifetime risk for the development of breast cancer is 20% or higher, the patient may qualify for future screening with alternating mammogram and breast MRI. [facility], , 06/06/2024 10:44 AM. Electronically signed and approved by: Eliceo Wilson M.D. [facility]
== END | disposition home or self-care (01) ==
LOC: RADMAMWWP 12:56
PROVIDERS: ATTEND Family Medicine
DX: Z12.31 Encounter for screening mammogram for malignant neoplasm of breast (principal); Z78.0 Asymptomatic menopausal state; R92.333 Mammographic heterogeneous density, bilateral breasts
CPT/HCPCS: 77063; 77067